=== PATIENT | female | born 1955 | race Caucasian/White ===

== ENCOUNTER → 2017-02-23 | Outpatient (CLI) | payer BC ==
--- NOTE | 2017-02-23 10:44 | MM ---
Reason for exam: additional evaluation requested from abnormal screening. Last mammogram was performed less than 1 month ago. History: Patient is postmenopausal. Family history of breast cancer in cousin at age 50. Took estrogen for 5 years beginning at age 46. Took progesterone for 5 years beginning at age 46. Physical Findings: Nurse did not find any significant physical abnormalities on exam. MG Work Up Mamm w CAD LT ML, spot compression CC, and spot compression MLO view(s) were taken of the left breast. Prior study comparison: February 18, 2017, bilateral MG screening mammo w CAD. January 01, 2016, bilateral MG screening mammo w CAD. September 26, 2014, bilateral MG screening mammo w CAD. March 25, 2013, bilateral digital screening mammo w/CAD. March 16, 2012, bilateral digital screening mammo w/CAD. The breast tissue is heterogeneously dense. This may lower the sensitivity of mammography. The focal asymmetry disperses compatible with summation shadow. No persisting abnormality seen. ASSESSMENT: Negative, BI-RAD 1 RECOMMENDATION: Return to routine screening mammogram schedule for both breasts.
== END | disposition home or self-care (01) ==
LOC: RADMAMWWP 09:33
PROVIDERS: ATTEND Obstetrics & Gynecology
DX: R92.8 Other abnormal and inconclusive findings on diagnostic imaging of breast (principal)

== ENCOUNTER → 2018-03-30 | Outpatient (CLI) | payer BC ==
--- NOTE | 2018-03-30 11:19 | BD ---
EXAMINATION TYPE: Axial Bone Density DATE OF EXAM: 03/30/2018 COMPARISON: NONE CLINICAL HISTORY: Postmenopausal female Height: 65.5 IN Weight: 151 LBS RISK FACTORS HISTORY OF: Active: YES Postmenopausal woman: AGE 47 Take estrogen and/or progesterone medications: NOT NOW How long: CONTROL AGE 18-30 MEDICATIONS: Thyroid Medications: YES Which medication: Levothyroxine How Lon YEARS Additional Medications: CALCIUM, VIT D, HAIR SKIN AND NAILS, SIMVASTATIN, LEVOTHYROXINE, EXAM MEASUREMENTS: Bone mineral densitometry was performed using the [employer] System. Bone mineral density as measured about the Lumbar spine is: ----- L1-L4(G/cm2): 1.068 T Score Values are as follows: ----- L2: -2.3 ----- L3: -1.7 ----- L4: -1.2 ----- L1-L4: -0.9 Bone mineral density BASELINE Bone mineral density about the R hip (g/cm2): 0.789 Bone mineral density about the L hip (g/cm2): 0.800 T Score values are as follows: -----R Neck: -1.8 -----L Neck: -1.7 -----R Total: -1.8 -----L Total: -1.6 Bone mineral density BASELINE IMPRESSION: Osteopenia (T Score between -2.5 and -1). There is slightly increased risk of fracture and the patient may be considered for treatment. Re-Screen 2-5 years. NOTE: T-SCORE=SD OF THE YOUNG ADULT MEAN.
--- NOTE | 2018-04-01 08:22 | MM ---
Reason for exam: screening (asymptomatic). Last mammogram was performed 1 year and 1 month ago. History: Patient is postmenopausal. Family history of breast cancer in cousin at age 50. Took estrogen for 5 years beginning at age 46. Took progesterone for 5 years beginning at age 46. Physical Findings: A clinical breast exam by your physician is recommended on an annual basis and results should be correlated with mammographic findings. MG 3D Screening Mammo W/Cad Bilateral CC and MLO view(s) were taken. Prior study comparison: February 23, 2017, left breast MG work up mamm w CAD LT. February 18, 2017, bilateral MG screening mammo w CAD. The breast tissue is heterogeneously dense. This may lower the sensitivity of mammography. There is no discrete abnormality. ASSESSMENT: Negative, BI-RAD 1 RECOMMENDATION: Routine screening mammogram of both breasts in 1 year.
== END | disposition home or self-care (01) ==
LOC: RADMAMWWP 10:08
PROVIDERS: ATTEND Obstetrics & Gynecology
DX: Z12.31 Encounter for screening mammogram for malignant neoplasm of breast (principal); M85.80 Other specified disorders of bone density and structure, unspecified site; Z78.0 Asymptomatic menopausal state
CPT/HCPCS: 77063; 77067; 77080

== ENCOUNTER → 2018-10-19 | Outpatient (CLI) | payer MEDICARE ==
--- NOTE | 2018-10-19 14:58 | XR ---
Left hip HISTORY: Hip pain 2 views of the left hip Bone mineralization, joint spaces and alignment are maintained. There is no fracture or dislocation. IMPRESSION: Normal left hip. Hip MRI may be of benefit.
== END | disposition home or self-care (01) ==
LOC: RADXRMAIN 13:33
PROVIDERS: ATTEND Nurse Practitioner Family
DX: M25.552 Pain in left hip (principal)
CPT/HCPCS: 73502

== ENCOUNTER → 2020-04-02 | Outpatient (CLI) | payer MEDICARE ==
--- NOTE | 2020-04-02 09:59 | BD ---
EXAMINATION TYPE: Axial Bone Density DATE OF EXAM: 04/02/2020 COMPARISON: 2017 CLINICAL HISTORY: disorder of bone Height: 5'6 Weight: 153 FRAX RISK QUESTIONS: Secondary Osteoporosis: 3. Menopause before 45: y RISK FACTORS HISTORY OF: Postmenopausal woman: y MEDICATIONS: Thyroid Medications: Which medication: generic synthroid How Lon yrs Additional Medications: statin Additional History: EXAM MEASUREMENTS: Bone mineral densitometry was performed using the [employer] System. Bone mineral density as measured about the Lumbar spine is: ----- L1-L4(G/cm2): 1.038 T Score Values are as follows: ----- L2: -2.2 ----- L3: -1.9 ----- L4: 0.7 ----- L1-L4: -1.2 Bone mineral density has: Decreased -2.7% since study of: 03/30/2018 Bone mineral density about the R hip (g/cm2): 0.722 Bone mineral density about the L hip (g/cm2): 0.814 T Score values are as follows: -----R Neck: -1.9 -----L Neck: -1.6 -----R Total: -0.5 -----L Total: -0.2 Bone mineral density has: Increased 0.9% since study of: 03/30/2018 IMPRESSION: Osteopenia (T Score between -2.5 and -1). There is slightly increased risk of fracture and the patient may be considered for treatment. Re-Screen 2-5 years. NOTE: T-SCORE=SD OF THE YOUNG ADULT MEAN.
--- NOTE | 2020-04-03 13:30 | MM ---
Reason for exam: screening (asymptomatic). Last mammogram was performed 2 years ago. History: Patient is postmenopausal. Family history of breast cancer in cousin at age 50. Took estrogen for 5 years beginning at age 46. Took progesterone for 5 years beginning at age 46. Physical Findings: A clinical breast exam by your physician is recommended on an annual basis and results should be correlated with mammographic findings. MG 3D Screening Mammo W/Cad Bilateral CC and MLO view(s) were taken. Prior study comparison: March 30, 2018, bilateral MG 3d screening mammo w/cad. February 23, 2017, left breast MG work up mamm w CAD LT. The breast tissue is heterogeneously dense. This may lower the sensitivity of mammography. No significant changes when compared with prior studies. ASSESSMENT: Negative, BI-RAD 1 RECOMMENDATION: Routine screening mammogram of both breasts in 1 year.
== END | disposition home or self-care (01) ==
LOC: RADMAMWWP 08:55
PROVIDERS: ATTEND Obstetrics & Gynecology
DX: Z12.31 Encounter for screening mammogram for malignant neoplasm of breast (principal); M85.80 Other specified disorders of bone density and structure, unspecified site
CPT/HCPCS: 77063; 77067; 77080

== ENCOUNTER → 2022-04-03 | Outpatient (CLI) | payer MEDICARE ==
--- NOTE | 2022-04-03 15:18 | BD ---
EXAMINATION TYPE: Axial Bone Density DATE OF EXAM: 04/03/2022 COMPARISON: 04.02.2020 CLINICAL HISTORY: 66 years year old Female. ICD-10 CODE: [id number] OSTEOPENIA Height: 65 Weight: 152 FRAX RISK QUESTIONS: Glucocorticoids (More than 3mos): YES (Ex: prednisone, prednisolone, methylprednisolone, dexamethasone, and hydrocortisone). RISK FACTORS HISTORY OF: Active: YES Postmenopausal woman: YES, 45 YRS OLD Take estrogen and/or progesterone medications: YES, SHORT TIME Hyperparathyroidism: NO Adrenal Insufficiency: NO MEDICATIONS: Prednisone or other steroids: YES, IN HER EYES Thyroid Medications:YES, SYNTHROID, 10+ YRS Additional Medications: STATIN FOR CHOLESTEROL, VIT D, CALCIUM Additional History: CHOLESTEROL, THYROID, CATARACTS, EXAM MEASUREMENTS: Bone mineral densitometry was performed using the [employer] System. Bone mineral density as measured about the Lumbar spine is: ----- L1-L4(G/cm2): 1.051 T Score Values are as follows: ----- L1: -2.0 ----- L2: -1.9 ----- L3: -1.3 ----- L4: 0.4 ----- L1-L4: -1.1 Bone mineral density has: Increased 1.3% since study of: 04.02.2020 Bone mineral density about the R hip (g/cm2): 0.768 Bone mineral density about the L hip (g/cm2): 0.824 T Score values are as follows: -----R Neck: -1.8 -----L Neck: -1.7 -----R Total: -1.9 -----L Total: -1.5 Bone mineral density has: Decreased -1.1% since study of: 04.02.2020 FRAX%s: The graph provided illustrates a 7.8% chance for a major osteoporotic fx and a 2.1% chance fo r the hips probability for fx in 10 years time. IMPRESSION: Osteopenia (T Score between -2.5 and -1). There is slightly increased risk of fracture and the patient may be considered for treatment. Re-Screen 2-5 years. NOTE: T-SCORE=SD OF THE YOUNG ADULT MEAN.
--- NOTE | 2022-04-04 09:56 | MM ---
Reason for Exam: Screening (asymptomatic). Last mammogram was performed 2 year(s) and 0 month(s) ago. Patient History: Menarche at age 8. First Full-Term at age 23. Postmenopausal. Estrogen for 5 years from age 46 until age 51. Progesterone for 5 years from age 46 until age 51. Maternal cousin had breast cancer, age 50. Risk Values: Farhana 5 year model risk: 2.1%. NCI Lifetime model risk: 6.7%. Prior Study Comparison: 02/23/2017 Left Diagnostic Mammogram, [facility]. 03/30/2018 Bilateral Screening Mammogram, [facility]. 04/02/2020 Bilateral Screening Mammogram, [facility]. Tissue Density: There are scattered fibroglandular densities. Findings: Analyzed By CAD. There is no suspicious group of microcalcifications or new suspicious mass in either breast. Overall Assessment: Negative, BI-RAD 1 Management: Screening Mammogram of both breasts in 1 year. A clinical breast exam by your physician is recommended on an annual basis and results should be correlated with mammographic findings. [facility] will attempt to contact patient to return for supplemental views and ultrasound if indicated. Electronically signed and approved by: Ruddy Fu DO
== END | disposition home or self-care (01) ==
LOC: RADMAMWWP 10:10
PROVIDERS: ATTEND Obstetrics & Gynecology
DX: Z12.31 Encounter for screening mammogram for malignant neoplasm of breast (principal); M85.89 Other specified disorders of bone density and structure, multiple sites; Z78.0 Asymptomatic menopausal state; Z80.3 Family history of malignant neoplasm of breast
CPT/HCPCS: 77063; 77067; 77080

== ENCOUNTER → 2023-03-28 | Outpatient (CLI) | payer MEDICARE ==
--- NOTE | 2023-03-28 12:18 | XR ---
EXAMINATION TYPE: XR Hip Complete LT DATE OF EXAM: 03/28/2023 11:57 AM CLINICAL INDICATION:Female, 67 years old with history of M25.552 LT HIP PAIN; [facility] COMPARISON: 10/19/2018. TECHNIQUE: XR Hip Complete LT; hip was examined in the frontal and lateral projections and a AP pelvi s. FINDINGS: No evidence for acute process, joint dislocation or significant soft tissue swelling. Osteo phyte formation of the superior acetabulum of the hip. IMPRESSION: 1. No evidence for acute process. 2. Mild hip osteoarthrosis. Mildly increased compared to 2018
== END | disposition home or self-care (01) ==
LOC: RADXRMAIN 11:33
PROVIDERS: ATTEND Family Medicine
DX: M25.552 Pain in left hip (principal); M19.90 Unspecified osteoarthritis, unspecified site; Z04.9 Encounter for examination and observation for unspecified reason
CPT/HCPCS: 73502

== ENCOUNTER → 2023-04-06 | Outpatient (CLI) | payer MEDICARE ==
--- NOTE | 2023-04-06 10:33 | MM ---
Reason for Exam: Screening (asymptomatic). Last screening mammogram was performed 12 month(s) ago. Patient History: Menarche at age 8. First Full-Term at age 23. Postmenopausal. Hormonal Contraceptives for 12 years from age 17 until age 29. Maternal cousin had breast cancer, age 50. Risk Values: Farhana 5 year model risk: 2.1%. NCI Lifetime model risk: 6.4%. Prior Study Comparison: 03/30/2018 Bilateral Screening Mammogram, [facility]. 04/02/2020 Bilateral Screening Mammogram, [facility]. 04/03/2022 Bilateral MG 3D screening mammo w/cad, [facility]. Tissue Density: There are scattered fibroglandular densities. Findings: Analyzed By CAD. There is no suspicious group of microcalcifications or new suspicious mass. Overall Assessment: Negative, BI-RAD 1 Management: Screening Mammogram of both breasts in [address] [facility] will attempt to contact patient to return for supplemental views and ultrasound if indicated. Patient should continue monthly self-breast exams. A clinical breast exam by your physician is recommended on an annual basis. This exam should not preclude additional follow-up of suspicious palpable abnormalities. Note on Farhana scores and lifetime risk: 1. A Farhana score greater than 3% is considered moderate risk. If this is the case, consider specialist referral to assess eligibility for a risk reducing agent. 2. If overall lifetime risk for the development of breast cancer is 20% or higher, the patient may qualify for future screening with alternating mammogram and breast MRI. Electronically signed and approved by: Ruddy Fu DO
== END | disposition home or self-care (01) ==
LOC: RADMAMWWP 09:10
PROVIDERS: ATTEND Obstetrics & Gynecology
DX: Z12.31 Encounter for screening mammogram for malignant neoplasm of breast (principal); Z78.0 Asymptomatic menopausal state; Z80.3 Family history of malignant neoplasm of breast
CPT/HCPCS: 77063; 77067

== ENCOUNTER → 2023-04-24 | Outpatient (CLI) | payer MEDICARE ==
--- NOTE | 2023-04-29 09:03 | MR ---
EXAM: MR hip LT wo con DATE OF EXAM: 04/24/2023 COMPARISON: Left hip radiographs 04/20/2023 HISTORY: Left hip pain x 3 years. TECHNIQUE: Multiplanar, multisequence images of the left hip were acquired without contrast. FINDINGS: BONES/MARROW: Normal bone marrow signal. Mild thinning of the superior femoral head and superior acet abular articular cartilage. No joint effusion. LABRUM: Grossly intact, given the limitations of a non arthrographic exam. SOFT TISSUES: Full-thickness tear involving the gluteus minimus tendon are retracted proximally appro ximately 1.8 cm. There is partial thickness tearing and tendinosis of the gluteus medius tendon. Incr eased fluid within the trochanteric bursa. Small amount of fluid at the right common hamstrings bone tendon interface, relating to partial thickness/intrasubstance tearing, no full-thickness or retracte d tear.. NEUROVASCULAR: Visualized neurovascular structures are normal. OTHER: Visualized intrapelvic structures are normal.. No mass. No lymphadenopathy. IMPRESSION: 1. Full-thickness tear gluteus minimus tendon. 2. Partial-thickness tear and tendinosis gluteus medius tendon. 3. Trochanteric bursitis. 4. Mild left hip chondromalacia. 5. Right common hamstring tendon origin partial thickness/intrasubstance tear.
== END | disposition home or self-care (01) ==
LOC: RADMRIMAIN 12:49
PROVIDERS: ATTEND Orthopaedic Surgery
DX: S76.012A Strain of muscle, fascia and tendon of left hip, initial encounter (principal); M94.252 Chondromalacia, left hip; M67.854 Other specified disorders of tendon, left hip; M70.62 Trochanteric bursitis, left hip

== ENCOUNTER → 2023-11-20 | Outpatient (CLI) | payer MEDICARE ==
--- NOTE | 2023-11-20 15:23 | FL ---
EXAMINATION TYPE: FL barium swallow DATE OF EXAM: 11/20/2023 CLINICAL INDICATION: 68-year-old female R13.10, difficulty swallowing solids, choking with solids. COMPARISON: None Total Fluoroscopy Time: 1 minute 54 seconds Total images: 94. DAP- 269.25 mGycm2 FINDINGS: No penetration or aspiration is seen during the patient's initial swallows. There is moderate disc/en dplate degenerative change mid and lower cervical spine. Anterior endplate spurs impress onto the patria k wall of the cervical esophagus but without any obstruction. This thoracic portion has a normal course and caliber. No fixed narrowing. Mild scattered tertiary pe ristaltic waves are noted compatible with age-related dysmotility. No abnormal filling defect or mucosal abnormality. There is a tiny hiatal hernia but no gastroesophageal reflux seen during the course of the exam IMPRESSION: 1. Moderate anterior endplate spondylosis mid to lower cervical spine impresses onto the back wall of the cervical esophagus but does not contribute to any obstruction. No penetration or aspiration seen during the initial swallows. If the patient's choking episodes persist, consider these pathology tammy luation. 2. No stricture or mucosal abnormality seen. 3. Tiny hiatal hernia but no gastroesophageal reflux seen.
== END | disposition home or self-care (01) ==
LOC: RADUSWWP 08:04
PROVIDERS: ATTEND Family Medicine
DX: R13.10 Dysphagia, unspecified (principal); M47.812 Spondylosis without myelopathy or radiculopathy, cervical region; K44.9 Diaphragmatic hernia without obstruction or gangrene
CPT/HCPCS: 74220

== ENCOUNTER 2024-02-05 14:52 | Day surgery (SDC) | payer MEDICARE ==
[2024-02-05 15:17] VITALS: TEMP 97.3
[2024-02-05] MEDS: LACTATED RINGERS 1,000 ML IV SCH (15:23)
[2024-02-05] MEDS ORDERED: PROPOFOL 10 MG/ML 20 ML VIAL IV ONE (16:26)
[2024-02-05] MEDS: LACTATED RINGERS 1,000 ML IV ONE ×3 (16:30→16:45)
[2024-02-05 17:15] VITALS: BP 106/70; PULSE 60; RESP 16
--- NOTE | 2024-02-05 17:24 | P.PCN ---
Date of Procedure: 02/05/24 Procedure(s) Performed: BRIEF HISTORY: Patient is a 68-year-old pleasant white female scheduled for an elective colonoscopy as a part of screening for colon cancer. PROCEDURE PERFORMED: Colonoscopy. PREOPERATIVE DIAGNOSIS: Screening for colon cancer. IV sedation per Anesthesia. PROCEDURE: After informed consent was obtained, the patient, was brought into the endoscopy unit. IV sedation was administered by Anesthesia under continuous monitoring. Digital rectal examination was normal. Initially the Olympus CF-160 flexible video colonoscope was then inserted in the rectum, gradually advanced into the cecum without any difficulty. Careful examination was performed as the scope was gradually being withdrawn. Ileocecal valve and the appendiceal orifice were visualized and appeared normal. Prep was excellent. Mucosa of the cecum, ascending colon, transverse colon, descending colon, sigmoid colon, and rectum appeared normal. Scattered sigmoid diverticulosis retroflexion was performed in the rectum and no lesions were seen. The patient tolerated the procedure well. IMPRESSION: Normal-appearing colon from rectum to cecum with no evidence of colorectal neoplasia Katter sigmoid diverticulosis. RECOMMENDATIONS: Findings of this examination were discussed with the patient as well as her family. She was advised to have repeat screening colonoscopy in 10 years..
== END 2024-02-05 17:40 | disposition home or self-care (01) ==
LOC: ORWHC2ENDO 14:52
PROVIDERS: ATTEND Internal Medicine Gastroenterology
DX: Z12.11 Encounter for screening for malignant neoplasm of colon
CPT/HCPCS: 45378

== ENCOUNTER → 2024-04-07 | Outpatient (CLI) | payer MEDICARE ==
[2024-02-02 13:14] VITALS: BMI 25.0
--- NOTE | 2024-04-08 08:22 | MM ---
Reason for Exam: Screening (asymptomatic). Last screening mammogram was performed 12 month(s) ago. Patient History: Menarche at age 8. First Full-Term at age 23. Postmenopausal. Patient has history of breast feeding. Hormonal Contraceptives for 12 years from age 17 until age 29. Risk Values: Farhana 5 year model risk: 2.1%. NCI Lifetime model risk: 6.1%. Prior Study Comparison: 02/18/2017 Bilateral Screening Mammogram, [facility]. 02/23/2017 Left Diagnostic Mammogram, [facility]. 03/30/2018 Bilateral Screening Mammogram, [facility]. 04/02/2020 Bilateral Screening Mammogram, [facility]. 04/03/2022 Bilateral MG 3D screening mammo w/cad, [facility]. 04/06/2023 Bilateral MG 3D screening mammo w/cad, [facility]. Tissue Density: The breasts are heterogeneously dense, which may obscure small masses. Findings: Analyzed By CAD. Nodular density upper outer left breast 4.3 cm from the nipple. Additional views are recommended. No evidence for nodularity of the right breast there is asymmetric distortion however outer right cc view and additional views are also recommended. No suspicious microcalcifications. Overall Assessment: Incomplete: need additional imaging evaluation, BI-RAD 0 Management: Diagnostic Mammogram of both breasts. . Patient should continue monthly self-breast exams. A clinical breast exam by your physician is recommended on an annual basis. This exam should not preclude additional follow-up of suspicious palpable abnormalities. Note on Farhana scores and lifetime risk: 1. A Farhana score greater than 3% is considered moderate risk. If this is the case, consider specialist referral to assess eligibility for a risk reducing agent. 2. If overall lifetime risk for the development of breast cancer is 20% or higher, the patient may qualify for future screening with alternating mammogram and breast MRI. [facility], , 04/08/2024 8:15 AM. Electronically signed and approved by: Alejandro Ellison M.D. Radiologis
== END | disposition home or self-care (01) ==
LOC: RADMAMWWP 08:16
PROVIDERS: ATTEND Family Medicine
DX: Z12.31 Encounter for screening mammogram for malignant neoplasm of breast (principal); R92.333 Mammographic heterogeneous density, bilateral breasts; Z78.0 Asymptomatic menopausal state
CPT/HCPCS: 77063; 77067

== ENCOUNTER → 2024-04-19 | Outpatient (CLI) | payer MEDICARE ==
--- NOTE | 2024-04-19 08:58 | MM ---
Reason for Exam: Additional evaluation requested from abnormal screening. Last screening mammogram was performed less than 1 month ago. Patient History: Menarche at age 8. First Full-Term at age 23. Postmenopausal. Patient has history of breast feeding. Hormonal Contraceptives for 12 years from age 17 until age 29. Risk Values: Farhana 5 year model risk: 2.1%. NCI Lifetime model risk: 6.1%. Prior Study Comparison: 04/06/2023 Bilateral MG 3D screening mammo w/cad, [facility]. 04/07/2024 Bilateral MG 3D screening mammo w/cad, [facility]. Tissue Density: The breasts are heterogeneously dense, which may obscure small masses. Findings: Analyzed By CAD. The questioned area of asymmetric density outer posterior right breast does not clearly persist on additional views. On the left, the asymmetric density superiorly in the middle depth appears to persist on spot 3-D MLO but not on the 3-D lateral or spot 3-D CC views. Superimposition shadow is suspected. Ultrasound recommended. Overall Assessment: Incomplete: need additional imaging evaluation, BI-RAD 0 Management: Diagnostic Breast Ultrasound of the left breast. [facility], , 04/19/2024 8:56 AM. Electronically signed and approved by: Marvin Kidd M.D. Radiologist
--- NOTE | 2024-04-19 09:16 | USB ---
Reason for Exam: Additional evaluation requested from abnormal screening. Patient History: Menarche at age 8. First Full-Term at age 23. Postmenopausal. Patient has history of breast feeding. Hormonal Contraceptives for 12 years from age 17 until age 29. Risk Values: Farhana 5 year model risk: 2.1%. NCI Lifetime model risk: 6.1%. Technique: Method: Targeted. Doppler: Color. Patient Position: Supine. Prior Study Comparison: 04/03/2022 Bilateral MG 3D screening mammo w/cad, [facility]. 04/06/2023 Bilateral MG 3D screening mammo w/cad, [facility]. 04/07/2024 Bilateral MG 3D screening mammo w/cad, [facility]. Findings: The upper section of the breast of the left breast, the axilla of the left breast and the retroareolar of the left breast were scanned. Ultrasound superior half left breast 9:00 to 3:00 including scanning of the subareolar region and axilla. At the 12:00 position, 4 cm from the nipple, there is a circumscribed oval mass measuring 6 mm. There is central echogenic area with peripheral hypoechoic area. Possible small intramammary lymph node. As this may correspond to the mammographic finding, biopsy with clip placement is recommended. No other solid or cystic lesion or axillary lymphadenopathy. Overall Assessment: Suspicious, BI-RAD 4 Management: Ultrasound Core Biopsy of the left breast. Results were given to the patient verbally at the time of exam. [facility], , 04/19/2024 9:12 AM. Electronically signed and approved by: Marvin Kidd M.D. Radiologist
== END | disposition home or self-care (01) ==
LOC: RADMAMWWP 08:01
PROVIDERS: ATTEND Family Medicine
DX: R92.8 Other abnormal and inconclusive findings on diagnostic imaging of breast (principal); Z78.0 Asymptomatic menopausal state
CPT/HCPCS: 77066; 76642; G0279; 77062

== ENCOUNTER → 2024-05-05 | Day surgery (SDC) | payer MEDICARE ==
--- NOTE | 2024-05-13 09:29 | MM ---
Reason for Exam: Post Procedure Mammogram. Last screening mammogram was performed less than 1 month ago. Patient History: Menarche at age 8. First Full-Term at age 23. Postmenopausal. Patient has history of breast feeding. Hormonal Contraceptives for 12 years from age 17 until age 29. Risk Values: Farhana 5 year model risk: 2.1%. NCI Lifetime model risk: 6.1%. Prior Study Comparison: 02/23/2017 Left Diagnostic Mammogram, [facility]. 03/30/2018 Bilateral Screening Mammogram, [facility]. 04/02/2020 Bilateral Screening Mammogram, [facility]. 04/03/2022 Bilateral MG 3D screening mammo w/cad, [facility]. 04/06/2023 Bilateral MG 3D screening mammo w/cad, [facility]. 04/07/2024 Bilateral MG 3D screening mammo w/cad, [facility]. 04/19/2024 Left US breast workup limited LT, [facility]. 04/19/2024 Bilateral MG 3D work up w/cad [place], [facility]. Tissue Density: Left: The breasts are heterogeneously dense, which may obscure small masses. Pathology Description: Location: 12 o'clock. Marker Left Behind. Needle Type: [place] Cores: 2 Gauge: 12 The procedure of ultrasound guided core biopsy was explained to the patient. Benefits, alternatives, and risks were discussed. An informed consent was then obtained. The patient was placed in supine positioning for imaging and for the procedure. The overlying skin was prepped and draped in usual sterile fashion. Lidocaine buffered with bicarbonate was used as anesthetic into the skin and subcutaneous tissue up to area of concern in the left 12:00 breast 4 cm from the nipple . A sean was made with surgical scalpel. Under ultrasound guidance, a 12-gauge vacuum assisted biopsy gun device was used to obtain 2 core samples. Following this, a biopsy clip was left in lesion. The patient tolerated the procedure well without any immediate complication. The patient was kept in the radiology department for short stay after the procedure and then discharged home in stable condition. Postprocedure mammogram: The patient was transferred to mammography for physician ordered post procedure mammogram for clip placement verification. Post procedure mammogram demonstrates the clip in appropriate placement. Impression: Successful, uncomplicated ultrasound guided core biopsy of area of concern in the left 12:00 breast 4 cm from the nipple breast, full pathology results to follow. [facility], , 05/05/2024 2:52 PM. Pathology Results: Result: Malignant, Invasive ductal carcinoma. Pathology and radiology were reviewed. Findings are concordant. LEFT BREAST, 12:00, ULTRASOUND GUIDED CORE BIOPSY: Invasive Grade 1 ductal carcinoma with microcalcification (see Surgical Pathology Cancer Case Summary and comment). Focal DCIS present. Overall Assessment: Malignant Assessment: MG diagnostic mammo LT wo CAD. - Left: Known biopsy proven malignancy, BI-RAD 6. Management: Surgical Consultation of the left breast. Electronically signed and approved by: Alejandro Ellison M.D. Radiologis
== END ==
LOC: RADUSWWP 12:40
PROVIDERS: ATTEND Family Medicine
DX: C50.812 Malignant neoplasm of overlapping sites of left female breast (principal); Z78.0 Asymptomatic menopausal state; Z17.0 Estrogen receptor positive status [ER+]
CPT/HCPCS: 88305; 88342; 88341; 77065; 19083; A4648

== ENCOUNTER → 2024-05-16 | Outpatient (CLI) | payer MEDICARE ==
[2024-05-16 11:15] VITALS: BP 121/77; PULSE 79; RESP 17; TEMP 98.7
--- NOTE | 2024-05-16 12:40 | P.GSCN ---
History of Present Illness Consult date: 05/16/24 Reason for Consult: left breast invasive ductal cancer Requesting physician: Mana Doherty History of present illness: Echo is a 68 year old female seen in consultation for Dale Doherty regarding a left breast biopsy-proven invasive ductal carcinoma. She had a bilateral screening mammogram performed on 04-07-2024. Following this it was recommended that she undergo diagnostic mammogram of both breast. Diagnostic mammogram of both breasts were performed on 04-19-2024 which led to further workup of the left breast. She did undergo further workup of the left breast on 04-19-2024 which revealed a 6 mm lesion in the left breast at the 12 o'clock position. She underwent ultrasound-guided core biopsy of this area on 05-05-2024 and this revealed an invasive grade 1 ductal carcinoma. This was ER/MD positive and HER2 negative. she did not feel anything in her breast. Never had surgery on her breast in the past. She is not complaining of any nipple discharge or skin changes. She has not had any recent trauma or infection in the breast. Caffeine: 2 12 0z muggs of coffee nicotine: none chocolate: weekly hormones: none BCP: used for 10 years Family History: maternal grandmother: ? colon maternal cousin: cancer ? type brother: tumor on shoulder spread brother: amylodiosis cardiac Hormonal History: menarche: 10 , breast fed: yes, age at first : 23 menopause: 43 Surgical History: bunyon right foot left leg fatty nodules tonsil wisdom teeth Medical History: hypothyroid high cholesterol Social History: nicotine: none alcohol: occasional drugs: none Review of Systems - Constitutional Denies fever, Denies weight loss - EENT EENT Comment(s): cataract surgery bilateral Ears: bilateral: tinnitus, deny: decreased hearing Ears, nose, mouth and throat: Denies dysphagia - Breasts bilateral: as per HPI - Cardiovascular Denies chest pain, Denies shortness of breath - Respiratory Denies cough, Denies 7 - Gastrointestinal Reports as per HPI - Genitourinary Genitourinary: Denies dysuria, Denies hematuria Menstruation: Reports postmenopausal - Musculoskeletal Musculoskeleta Comment(s): back pain arthritis, bone spurs in neck - Integumentary Denies rash, Denies unusual bruising - Neurological Denies headaches, Denies syncope - Psychiatric Reports as per HPI - Endocrine Reports as per HPI, Reports fatigue - Hematologic/Lymphatic Denies easy bleeding, Denies easy bruising - Allergic/Immunologic Reports as per HPI, Reports seasonal allergies Past Medical History Past Medical History: Hyperlipidemia, Thyroid Disorder Additional Past Medical History / Comment(s): Arthritis, History of Any Multi-Drug Resistant Organisms: None Reported Past Surgical History: Tonsillectomy Additional Past Surgical History / Comment(s): Colonoscopy, R foot surgery with hardware, cataracts Additional Past Anesthesia/Blood Transfusion Reaction / Comm: States with last colonoscopy her heart rate decreased and states they gave her medicine to increase her heart rate. Past Psychological History: No Psychological Hx Reported Smoking Status: Never smoker Past Alcohol Use History: Occasional Past Drug Use History: None Reported - Past Family History Mother Family Medical History: No Reported History Father Family Medical History: Myocardial Infarction ([place]) Medications and Allergies Home Medications Medication Instructions Recorded Confirmed Type Levothyroxine Sodium [Synthroid] 75 mcg PO DAILY 10/07/13 05/16/24 History Simvastatin [Zocor] 20 mg PO HS 10/07/13 05/16/24 History Calcium Carbonate [Calcium] 600 mg PO DAILY 02/02/24 05/16/24 History Cholecalciferol [Vitamin D3 (10 10 mcg PO DAILY 02/02/24 05/16/24 History Mcg = 400 Iu)] Ibuprofen [Motrin] 400 mg PO Q8HR PRN 02/02/24 05/16/24 History Multivitamins, Thera [Multivitamin 1 tab PO DAILY 02/02/24 05/16/24 History (formulary)] Allergies Allergy/AdvReac Type Severity Reaction Status Date / Time No Known Allergies Allergy Verified 05/16/24 11:12 Surgical - Exam Vital Signs Temp Pulse Resp BP Pulse Ox 98.7 F 79 17 121/77 97 05/16/24 11:12 05/16/24 11:12 05/16/24 11:12 05/16/24 11:12 05/16/24 11:12 - General no distress - Eyes normal ocular movement - ENT no hearing loss - Neck trachea midline - Respiratory normal respiratory effort, clear to auscultation - Cardiovascular Rhythm: regular Heart Sounds: normal: S1, S2 - Abdomen Abdomen: soft, non tender, no guarding, no rigid, no rebound - Integumentary normal turgor - Neurologic no disoriented, no combative - Musculoskeletal normal gait - Psychiatric oriented to time, oriented to person, oriented to place, speech is normal, memory intact Breast Exam: BRA: 36B Inspection: Right breast grade ptosis, left breast grade 1/2 ptosis Palpation: Right breast: Multi positional exam fibrocystic changes, no dominant masses or nodules of concern Right axilla: No adenopathy of concern Left breast: Multi positional exam no dominant masses or nodules of concern, biopsy site clean and dry no evidence of infection, grade 2 ptosis Left axilla: No adenopathy of concern Results Left breast invasive ductal carcinoma stage I, radioigraphs personally reviewed and interpreted Assessment and Plan Assessment: Impression: Left breast stage I invasive ductal carcinoma Plan: present case at tumor board Left breast needle localization lumpectomy, mastopexy incision, oncoplastic tissue transfer, left sentinel node injection, left sentinel node biopsy, possible left axillary node dissection CC: Mana Doherty
== END ==
LOC: WWCWWP 10:47
PROVIDERS: ATTEND Surgery
DX: C50.912 Malignant neoplasm of unspecified site of left female breast (principal); Z17.0 Estrogen receptor positive status [ER+]; Z17.21 Progesterone receptor positive status

== ENCOUNTER → 2024-06-10 | Outpatient (CLI) | payer MEDICARE ==
--- NOTE | 2024-06-10 08:35 | USB ---
Reason for Exam: Additional evaluation requested from prior study. Patient History: Menarche at age 8. First Full-Term at age 23. Postmenopausal. Patient has history of breast feeding. Breast cancer, left, age 68. Hormonal Contraceptives for 12 years from age 17 until age 29. 05/05/2024, Malignant US biopsy breast VAD LT on the left side. Technique: Method: Whole Breast Handheld. Prior Study Comparison: 04/07/2024 Bilateral MG 3D screening mammo w/cad, [facility]. 04/19/2024 Bilateral MG 3D work up w/cad [facility], [facility]. 05/05/2024 Left MG diagnostic mammo LT wo CAD., [facility]. Findings: The whole breast of the right breast, the axilla of the right breast and the retroareolar of the right breast were scanned. A complete US of all four quadrants of the breast, axilla, and retro-areolar region were reviewed. There is no solid or cystic mass. No definite ectasia or axillary adenopathy. Overall Assessment: Known biopsy proven malignancy, BI-RAD 6 Management: Surgical Consultation of the left breast. No abnormality identified in the right breast. Continue with planned surgical/oncologic management in the left breast. Results were given to the patient verbally at the time of exam. [facility], , 06/10/2024 8:32 AM. Electronically signed and approved by: Marvin Kidd M.D. Radiologist
== END | disposition home or self-care (01) ==
LOC: RADMAMWWP 07:51
PROVIDERS: ATTEND Surgery
DX: R92.8 Other abnormal and inconclusive findings on diagnostic imaging of breast (principal); Z85.3 Personal history of malignant neoplasm of breast; Z78.0 Asymptomatic menopausal state

== ENCOUNTER → 2024-06-16 | Outpatient (CLI) | payer MEDICARE ==
[2024-06-16 15:50] VITALS: BP 144/85; PULSE 72; RESP 17; TEMP 97.6
--- NOTE | 2024-06-16 16:45 | P.PN ---
Subjective Progress Note Date: 06/16/24 Principal diagnosis: left breast invasive ductal cancer History of Present Illness Consult date: 06-16-24 Reason for Consult: left breast invasive ductal cancer Requesting physician: Mana Doherty History of present illness: Echo is a 68 year old female seen in consultation for Dale Doherty regarding a left breast biopsy-proven invasive ductal carcinoma. She had a bilateral screening mammogram performed on 04-07-2024. Following this it was recommended that she undergo diagnostic mammogram of both breast. Diagnostic mammogram of both breasts were performed on 04-19-2024 which led to further workup of the left breast. She did undergo further workup of the left breast on 04-19-2024 which revealed a 6 mm lesion in the left breast at the 12 o'clock position. She underwent ultrasound-guided core biopsy of this area on 05-05-2024 and this revealed an invasive grade 1 ductal carcinoma. This was ER/RI positive and HER2 negative. she did not feel anything in her breast. Never had surgery on her breast in the past. She is not complaining of any nipple discharge or skin changes. She has not had any recent trauma or infection in the breast. Patient's case presented at tumor board and 05-31-2024. She is going to have a left breast lumpectomy sentinel node biopsy, Oncotype, radiation therapy and endocrine therapy recommended. She is having additional radiographs of the right breast performed on 06-10-2024. These were done and no lesions of concern noted. Caffeine: 2 12 0z muggs of coffee nicotine: none chocolate: weekly hormones: none BCP: used for 10 years Family History: maternal grandmother: ? colon maternal cousin: cancer ? type brother: tumor on shoulder spread brother: amylodiosis cardiac Hormonal History: menarche: 10 , breast fed: yes, age at first : 23 menopause: 43 Surgical History: bunyon right foot left leg fatty nodules tonsil wisdom teeth Medical History: hypothyroid high cholesterol Social History: nicotine: none alcohol: occasional drugs: none Review of Systems - Constitutional Denies fever, Denies weight loss - EENT EENT Comment(s): cataract surgery bilateral Ears: bilateral: tinnitus, deny: decreased hearing Ears, nose, mouth and throat: Denies dysphagia - Breasts bilateral: as per HPI - Cardiovascular Denies chest pain, Denies shortness of breath - Respiratory Denies cough, - Gastrointestinal Reports as per HPI - Genitourinary Genitourinary: Denies dysuria, Denies hematuria Menstruation: Reports postmenopausal - Musculoskeletal Musculoskeleta Comment(s): back pain arthritis, bone spurs in neck - Integumentary Denies rash, Denies unusual bruising - Neurological Denies headaches, Denies syncope - Psychiatric Reports as per HPI - Endocrine Reports as per HPI, Reports fatigue - Hematologic/Lymphatic Denies easy bleeding, Denies easy bruising - Allergic/Immunologic Reports as per HPI, Reports seasonal allergies Past Medical History Past Medical History: Hyperlipidemia, Thyroid Disorder Additional Past Medical History / Comment(s): Arthritis, History of Any Multi-Drug Resistant Organisms: None Reported Past Surgical History: Tonsillectomy Additional Past Surgical History / Comment(s): Colonoscopy, R foot surgery with hardware, cataracts Additional Past Anesthesia/Blood Transfusion Reaction / Comm: States with last colonoscopy her heart rate decreased and states they gave her medicine to increase her heart rate. Past Psychological History: No Psychological Hx Reported Smoking Status: Never smoker Past Alcohol Use History: Occasional Past Drug Use History: None Reported - Past Family History Mother Family Medical History: No Reported History Father Family Medical History: Myocardial Infarction ([place]) Medications and Allergies Home Medications Medication Instructions Recorded Confirmed Type Levothyroxine Sodium [Synthroid] 75 mcg PO DAILY 10/07/13 05/16/24 History Simvastatin [Zocor] 20 mg PO HS 10/07/13 05/16/24 History Calcium Carbonate [Calcium] 600 mg PO DAILY 02/02/24 05/16/24 History Cholecalciferol [Vitamin D3 (10 10 mcg PO DAILY 02/02/24 05/16/24 History Mcg = 400 Iu)] Ibuprofen [Motrin] 400 mg PO Q8HR PRN 02/02/24 05/16/24 History Multivitamins, Thera [Multivitamin 1 tab PO DAILY 02/02/24 05/16/24 History (formulary)] Allergies Allergy/AdvReac Type Severity Reaction Status Date / Time No Known Allergies Allergy Verified 05/16/24 11:12 Surgical - Exam Vital Signs Temp Pulse Resp BP Pulse Ox 98.7 F 79 17 121/77 97 05/16/24 11:12 05/16/24 11:12 05/16/24 11:12 05/16/24 11:12 05/16/24 11:12 - General no distress - Eyes normal ocular movement - ENT no hearing loss - Neck trachea midline - Respiratory normal respiratory effort, clear to auscultation - Cardiovascular Rhythm: regular Heart Sounds: normal: S1, S2 - Abdomen Abdomen: soft, non tender, no guarding, no rigid, no rebound - Integumentary normal turgor - Neurologic no disoriented, no combative - Musculoskeletal normal gait - Psychiatric oriented to time, oriented to person, oriented to place, speech is normal, memory intact Breast Exam: BRA: 36B Inspection: Right breast grade ptosis, left breast grade 1/2 ptosis Palpation: Right breast: Multi positional exam fibrocystic changes, no dominant masses or nodules of concern Right axilla: No adenopathy of concern Left breast: Multi positional exam no dominant masses or nodules of concern, biopsy site clean and dry no evidence of infection, grade 2 ptosis Left axilla: No adenopathy of concern Results Left breast invasive ductal carcinoma stage I, radioigraphs personally reviewed and interpreted Assessment and Plan Assessment: Impression: Left breast stage I invasive ductal carcinoma Plan: present case at tumor board done Left breast needle localization lumpectomy, mastopexy incision, oncoplastic tissue transfer, left sentinel node injection, left sentinel node biopsy, possible left axillary node dissection Risk and benefits of the procedure was discussed with the patient. Risk include but are not limited to bleeding, infection, reaction to the anesthetic. If margins were to be positive in the left breast additional tissue resection may be necessary. Additionally there is a risk that the needle could slip in the area of concern would not be removed. They understand this and wish to proceed. With a sentinel node biopsy risks include but are not limited to bleeding, infection, reaction to the anesthetic. There is a risk of injury to the thoracodorsal or long thoracic nerves as well as decreased sensation to the inner arm or lymphedema. They understand and wish to proceed. CC: Mana Doherty Objective - Vital Signs Vital signs: Vital Signs Temp 97.6 F 06/16/24 15:47 Pulse 72 06/16/24 15:47 Resp 17 06/16/24 15:47 BP 144/85 06/16/24 15:47 Pulse Ox 98 06/16/24 15:47 FiO2 Intake & Output 06/15/24 06/16/24 06/16/24 18:59 06:59 18:59 Weight 72.575 kg
== END ==
LOC: WWCWWP 14:50
PROVIDERS: ATTEND Surgery
DX: C50.912 Malignant neoplasm of unspecified site of left female breast (principal)

== ENCOUNTER 2024-07-10 13:00 | Emergency (ER) | payer MEDICARE ==
--- NOTE | 2024-07-10 13:49 | ED ---
Dizziness HPI - General Chief Complaint: Dizziness Stated Complaint: weak Time Seen by Provider: 07/10/24 13:17 Source: patient, RN notes reviewed Mode of arrival: ambulatory Limitations: no limitations - History of Present Illness Initial Comments: This is a 69-year-old female with history of hyperlipidemia presenting with sudden onset dizziness at 1100 this morning. Patient states she was seated when she began experiencing a sudden sensation of room spinning/dizziness with associated general weakness, dyspnea, nausea and tingling in all extremities. Patient states most symptoms resolved spontaneously after 45 minutes with ongoing weakness and tingling persisting. Patient Dors is recent lumpectomy and starting new cancer medication, Teva-letrozole, which she had started 5 days ago. Patient denies ongoing dizziness or ever experiencing chest pain, headache, diplopia, AMS, ALOC. Denies history of CVA/TIA or AMI. MD Complaint: dizziness Onset/Timin -: hour(s) Time: 11:00 Timing: sudden onset Description: sense of movement, "room spinning" History of Same: No History of Trauma: No Associated Symptoms: shortness of breath, weakness, other (Nausea, paresthesia) - Related Data Home Medications Medication Instructions Recorded Confirmed Simvastatin [Zocor] 20 mg PO HS 10/07/13 07/10/24 Calcium Carbonate [Calcium] 600 mg PO BID 02/02/24 07/10/24 Cholecalciferol [Vitamin D3 (25 25 mcg PO DAILY 07/10/24 07/10/24 Mcg = 1000 Iu)] Letrozole [Femara] 2.5 mg PO DAILY 07/10/24 07/10/24 Levothyroxine Sodium [Synthroid] 75 mcg PO DAILY 07/10/24 07/10/24 Loratadine 10 mg PO DAILY PRN 07/10/24 07/10/24 Multivit-Min/FA/Lycopen/Lutein 1 tab PO DAILY 07/10/24 07/10/24 [Centrum Silver Tablet] valACYclovir HCL [Valtrex] 1,000 mg PO DAILY PRN 07/10/24 07/10/24 Allergies Allergy/AdvReac Type Severity Reaction Status Date / Time No Known Allergies Allergy Verified 07/10/24 15:18 Review of Systems ROS Statement: Those systems with pertinent positive or pertinent negative responses have been documented in the HPI. ROS Other: All systems not noted in ROS Statement are negative. Past Medical History Past Medical History: Hyperlipidemia, Thyroid Disorder Additional Past Medical History / Comment(s): Arthritis, History of Any Multi-Drug Resistant Organisms: None Reported Past Surgical History: Tonsillectomy Additional Past Surgical History / Comment(s): Colonoscopy, R foot surgery with hardware, cataracts, NODULES TAKEN OFF LEFT FROST AT AGE 17, lumpectomy Additional Past Anesthesia/Blood Transfusion Reaction / Comment(s): States with last colonoscopy her heart rate decreased and states they gave her medicine to increase her heart rate. Past Psychological History: No Psychological Hx Reported Smoking Status: Never smoker Past Alcohol Use History: Occasional Past Drug Use History: None Reported - Past Family History Mother Family Medical History: Dementia, Thyroid Disorder Father Family Medical History: Myocardial Infarction ([place]) General Exam Limitations: no limitations General appearance: alert, in no apparent distress Head exam: Present: atraumatic, normocephalic, normal inspection Eye exam: Present: normal appearance, PERRL, EOMI, other (HINTs exam normal). Absent: scleral icterus, conjunctival injection, periorbital swelling Pupils: Present: normal accommodation ENT exam: Present: normal exam, mucous membranes moist Neck exam: Present: normal inspection. Absent: tenderness, meningismus, lymphadenopathy Respiratory exam: Present: normal lung sounds bilaterally. Absent: respiratory distress, wheezes, rales, rhonchi, stridor Cardiovascular Exam: Present: regular rate, normal rhythm, normal heart sounds. Absent: systolic murmur, diastolic murmur, rubs, gallop, clicks GI/Abdominal exam: Present: soft, normal bowel sounds. Absent: distended, tenderness, guarding, rebound, rigid Extremities exam: Present: normal inspection, full ROM, normal capillary refill, other (Bilateral radial and posterior tibialis pulse +2. Neurovascular and motor function for all distal extremities normal.). Absent: tenderness, pedal edema, joint swelling, calf tenderness Back exam: Present: normal inspection Neurological exam: Present: alert, oriented X3, CN II-XII intact Psychiatric exam: Present: normal affect, normal mood Skin exam: Present: warm, dry, intact, normal color. Absent: rash Course Vital Signs 07/10/24 07/10/24 07/10/24 13:10 14:03 15:00 Temperature 98 F Pulse Rate 69 64 68 Respiratory 20 18 16 Rate Blood Pressure 129/83 112/79 136/76 O2 Sat by Pulse 98 98 Oximetry 07/10/24 16:00 Temperature Pulse Rate 71 Respiratory 16 Rate Blood Pressure 118/78 O2 Sat by Pulse 97 Oximetry Medical Decision Making - Medical Decision Making Was pt. sent in by a medical professional or institution (, PA, MACHINE CLOTH TRIMMER, urgent care, hospital, or custodial...) When possible be specific @ -[No] Did you speak to anyone other than the patient for history (EMS, parent, family, police, friend...)? What history was obtained from this source @ -[No] Did you review nursing and triage notes (agree or disagree)? Why? @ -[I reviewed and agree with nursing and triage notes] Were old charts reviewed (outside hosp., previous admission, EMS record, old EKG, old radiological studies, urgent care reports/EKG's, custodial records)? Report findings @ -[No old charts were reviewed] Differential Diagnosis (chest pain, altered mental status, abdominal pain women, abdominal pain men, vaginal bleeding, weakness, fever, dyspnea, syncope, headache, dizziness, GI bleed, back pain, seizure, CVA, palpatations, mental health, musculoskeletal)? @ -Differential Dizziness: Benign paroxysmal positional Vertigo, Meniere's disease, otitis media, acoustic neuroma, vertebrobasilar insufficiency, cerebellar stroke, encephalitis, hypovolemic, arrhythmia, coronary artery syndrome, anemia, this is not meant to be an all-inclusive list Differential Weakness: Hypoglycemia, shock, sepsis, hyponatremia, anemia, infection, [place], ETOH, adverse medicine reaction, overdose, stroke, this is not meant to be an all-inclusive list. EKG interpreted by me (3pts min.). @ -Sinus rhythm with shortened NATALYA. No ST deviation or T wave inversion. Ventricular rate 67 bpm, NATALYA 102 ms, QRS duration 75 ms, QTc 438 ms. X-rays interpreted by me (1pt min.). @ -[None done] CT interpreted by me (1pt min.). @ -[None done] U/S interpreted by me (1pt. min.). @ -[None done] What testing was considered but not performed or refused? (CT, X-rays, U/S, labs)? Why? @ -[None] What meds were considered but not given or refused? Why? @ -[None] Did you discuss the management of the patient with other professionals (professionals i.e. , PA, MACHINE CLOTH TRIMMER, lab, RT, psych nurse, social staff worker, appointment setter, teacher, traffic maintenance officer, high risk case manager)? Give summary @ -[No] Was smoking cessation discussed for >3mins.? @ -[No] Was critical care preformed (if so, how long)? @ -[No] Were there social determinants of health that impacted care today? How? (Homelessness, low income, unemployed, alcoholism, drug addiction, transportation, low edu. Level, literacy, decrease access to med. care, custodial, re hab)? @ -[No] Was there de-escalation of care discussed even if they declined (Discuss DNR or withdrawal of care, Hospice)? DNR status @ -[No] What co-morbidities impacted this encounter? (DM, HTN, Smoking, COPD, CAD, Cancer, CVA, ARF, Chemo, Hep., AIDS, mental health diagnosis, sleep apnea, morbid obesity)? @ -[None] Was patient admitted / discharged? Hospital course, mention meds given and route , prescriptions, significant lab abnormalities, going to OR and other pertinent info. @ -[hospital course] Undiagnosed new problem with uncertain prognosis? @ -[No] Drug Therapy requiring intensive monitoring for toxicity (Heparin, Nitro, Insulin, Cardizem)? @ -[No] Were any procedures done? @ -[No] Diagnosis/symptom? @ -[default] Acute, or Chronic, or Acute on Chronic? @ -Acute Uncomplicated (without systemic symptoms) or Complicated (systemic symptoms)? @ -Complicated Side effects of treatment? @ -[No] Exacerbation, Progression, or Severe Exacerbation? @ -[No] Poses a threat to life or bodily function? How? (Chest pain, [place], [place], pneumonia, PE, COPD, DKA, ARF, appy, cholecystitis, CVA, Diverticulitis, Homicidal, Suicidal, threat to staff... and all critical care pts) @ -[No] - Lab Data Result diagrams: 07/10/24 13:41 07/10/24 13:41 Lab Results 07/10/24 07/10/24 07/10/24 Range/Units 13:41 13:41 13:41 WBC 5.7 (3.8-10.6) k/uL RBC 4.06 (3.80-5.40) m/uL Hgb 12.9 (11.4-16.0) gm/dL Hct 39.3 (34.0-46.0) % MCV 96.6 (80.0-100.0) fL MCH 31.7 (25.0-35.0) pg MCHC 32.8 (31.0-37.0) g/dL RDW 13.3 (11.5-15.5) % Plt Count 308 (150-450) k/uL MPV 7.4 Neutrophils % 80 % Lymphocytes % 12 % Monocytes % 5 % Eosinophils % 1 % Basophils % 0 % Neutrophils # 4.5 (1.3-7.7) k/uL Lymphocytes # 0.7 L (1.0-4.8) k/uL Monocytes # 0.3 (0-1.0) k/uL Eosinophils # 0.1 (0-0.7) k/uL Basophils # 0.0 (0-0.2) k/uL PT 11.1 (10.0-12.5) sec INR 1.0 (<1.2) APTT 21.1 L (22.0-30.0) sec Sodium 137 (137-145) mmol/L Potassium 3.5 (3.5-5.1) mmol/L Chloride 109 H (98-107) mmol/L Carbon Dioxide 22 (22-30) mmol/L Anion Gap 6 mmol/L BUN 14 (7-17) mg/dL Creatinine 0.53 (0.52-1.04) mg/dL Est GFR (CKD-EPI)AfAm >90 (>60 ml/min/1.73 sqM) Est GFR (CKD-EPI)NonAf >90 (>60 ml/min/1.73 sqM) Glucose 98 (74-99) mg/dL Calcium 8.1 L (8.4-10.2) mg/dL Magnesium 1.6 (1.6-2.3) mg/dL Total Bilirubin 0.4 (0.2-1.3) mg/dL AST 23 (14-36) U/L ALT 21 (4-34) U/L Alkaline Phosphatase 49 (38-126) U/L Troponin I (0.000-0.034) ng/mL Total Protein 5.6 L (6.3-8.2) g/dL Albumin 3.4 L (3.5-5.0) g/dL Urine Color Urine Appearance (Clear) Urine pH (5.0-8.0) Ur Specific [place] (1.001-1.035) Urine Protein (Negative) Urine Glucose (UA) (Negative) Urine Ketones (Negative) Urine Blood (Negative) Urine Nitrite (Negative) Urine Bilirubin (Negative) Urine Urobilinogen (<2.0) mg/dL Ur Leukocyte Esterase (Negative) 07/10/24 07/10/24 Range/Units 13:41 14:59 WBC (3.8-10.6) k/uL RBC (3.80-5.40) m/uL Hgb (11.4-16.0) gm/dL Hct (34.0-46.0) % MCV (80.0-100.0) fL MCH (25.0-35.0) pg MCHC (31.0-37.0) g/dL RDW (11.5-15.5) % Plt Count (150-450) k/uL MPV Neutrophils % % Lymphocytes % % Monocytes % % Eosinophils % % Basophils % % Neutrophils # (1.3-7.7) k/uL Lymphocytes # (1.0-4.8) k/uL Monocytes # (0-1.0) k/uL Eosinophils # (0-0.7) k/uL Basophils # (0-0.2) k/uL PT (10.0-12.5) sec INR (<1.2) APTT (22.0-30.0) sec Sodium (137-145) mmol/L Potassium (3.5-5.1) mmol/L Chloride (98-107) mmol/L Carbon Dioxide (22-30) mmol/L Anion Gap mmol/L BUN (7-17) mg/dL Creatinine (0.52-1.04) mg/dL Est GFR (CKD-EPI)AfAm (>60 ml/min/1.73 sqM) Est GFR (CKD-EPI)NonAf (>60 ml/min/1.73 sqM) Glucose (74-99) mg/dL Calcium (8.4-10.2) mg/dL Magnesium (1.6-2.3) mg/dL Total Bilirubin (0.2-1.3) mg/dL AST (14-36) U/L ALT (4-34) U/L Alkaline Phosphatase (38-126) U/L Troponin I <0.012 (0.000-0.034) ng/mL Total Protein (6.3-8.2) g/dL Albumin (3.5-5.0) g/dL Urine Color Colorless Urine Appearance Clear (Clear) Urine pH 7.5 (5.0-8.0) Ur Specific [place] 1.007 (1.001-1.035) Urine Protein Negative (Negative) Urine Glucose (UA) Negative (Negative) Urine Ketones Trace H (Negative) Urine Blood Negative (Negative) Urine Nitrite Negative (Negative) Urine Bilirubin Negative (Negative) Urine Urobilinogen <2.0 (<2.0) mg/dL Ur Leukocyte Esterase Negative (Negative) Disposition Clinical Impression: Dizziness Disposition: HOME SELF-CARE Condition: Good Instructions (If sedation given, give patient instructions): Dizziness (ED) Additional Instructions: Although up with PCP/oncology regarding symptoms and possible medication change. Is patient prescribed a controlled substance at d/c from ED?: No Referrals: Mana Doherty NPC [REFERRING] - 1-2 days Time of Disposition: 16:57
[2024-07-10 14:01] LABS: Basophils % (A) 0 %; Eosinophils # (A) 0.1 k/uL (0-0.7); Eosinophils % (A) 1 %; HCT 39.3 % (34.0-46.0); HGB 12.9 gm/dL (11.4-16.0); Lymphocytes # (A) 0.7 k/uL (1.0-4.8); Lymphocytes % (A) 12 %; MCH 31.7 pg (25.0-35.0); MCHC 32.8 g/dL (31.0-37.0); MCV 96.6 fL (80.0-100.0); Mean Platelet Volume 7.4; Monocytes # (A) 0.3 k/uL (0-1.0); Monocytes % (A) 5 %; Neutrophils # (A) 4.5 k/uL (1.3-7.7); Neutrophils % (A) 80 %; Platelet Count 308 k/uL (150-450); RBC 4.06 m/uL (3.80-5.40); RDW 13.3 % (11.5-15.5); WBC 5.7 k/uL (3.8-10.6)
[2024-07-10] MEDS: SODIUM CHLORIDE 0.9% 1,000 ML IV STA (14:01)
[2024-07-10 14:15] LABS: ALT 21 U/L (4-34); AST 23 U/L (14-36); African American GFR (CKD) >90 (>60 ml/min/1.73 sqM); Albumin 3.4 g/dL (3.5-5.0); Alkaline Phosphatase 49 U/L (38-126); Anion Gap 6 mmol/L; Blood Urea Nitrogen 14 mg/dL (7-17); Calcium 8.1 mg/dL (8.4-10.2); Carbon Dioxide 22 mmol/L (22-30); Chloride 109 mmol/L (98-107); Glucose 98 mg/dL (74-99); Magnesium 1.6 mg/dL (1.6-2.3); Non-African American GFR(CKD) >90 (>60 ml/min/1.73 sqM); Potassium 3.5 mmol/L (3.5-5.1); Sodium 137 mmol/L (137-145); Total Bilirubin 0.4 mg/dL (0.2-1.3); Total Protein 5.6 g/dL (6.3-8.2)
[2024-07-10 14:17] LABS: Prothrombin Time 11.1 sec (10.0-12.5)
[2024-07-10 14:20] LABS: Partial Thromboplastin Time 21.1 sec (22.0-30.0)
--- NOTE | 2024-07-10 14:37 | XR ---
EXAMINATION TYPE: XR chest 2V DATE OF EXAM: 07/10/2024 2:24 PM COMPARISON: None CLINICAL INDICATION: Female, 69 years old with history of Dizziness, SOB; PHH TECHNIQUE: XR chest 2V Frontal and lateral views of the chest. FINDINGS: Lungs/Pleura: There is no evidence of pleural effusion, focal consolidation, or pneumothorax. Pulmonary vascularity: Unremarkable. Heart/mediastinum: Cardiomediastinal silhouette is unremarkable. Musculoskeletal: No acute osseous pathology. IMPRESSION: No acute cardiopulmonary disease/process. [facility], , 07/10/2024 2:35 PM
[2024-07-10 15:09] LABS: Appearance,Urine Clear (Clear); Bilirubin,Urine Negative (Negative); Blood,Urine Negative (Negative); Color,Urine Colorless; Glucose,Urine (UA) Negative (Negative); Ketones,Urine Trace (Negative); Leukocyte Esterase,Urine Negative (Negative); Nitrite,Urine Negative (Negative); PH, Urine 7.5 (5.0-8.0); Protein,Urine Negative (Negative); Specific Gravity,Urine 1.007 (1.001-1.035); Urobilinogen,Urine <2.0 mg/dL (<2.0)
[2024-07-10 15:40] VITALS: RESP 16
--- NOTE | 2024-07-10 16:18 | CT ---
EXAMINATION TYPE: CT angio head neck DATE OF EXAM: 07/10/2024 3:12 PM COMPARISON: CT head same day. CLINICAL INDICATION: Female, 69 years old with history of Dizziness, extremity weakness; PHH, Dizzine ss and extremity weakness, lymphnodes removed from left breast x 3 weeks ago. TECHNIQUE: Axially acquired helical CT angiogram of the head and neck was obtained with contrast. Axi al images are supplemented with 3D reconstructions and MIP images which were post-processed at an in dependent workstation. NASCET criteria used. Contrast used:65 mL of Isovue 370 without and with IV Contrast, Oral contrast used: None. CT DLP: 1308.2 mGycm, Automated exposure control for dose reduction was used. FINDINGS: CTA HEAD: No evidence of acute intracranial hemorrhage, mass effect, or midline shift. The ventricles, sulci, a nd cisterns are unremarkable. Bilaterally aphakia. Vertebral arteries: The vertebral arteries are patent. Vertebral artery dominance: Codominant Basilar artery: The basilar artery is intact. The basilar artery bifurcation is normal. Internal Carotid arteries: The cervical, petrous, cavernous and supraclinoid segments are normal. BH[place]AR: Patent with no evidence of aneurysm. ACOM: Present without evidence of aneurysm. MCA: Patent with no evidence of aneurysm. DIE FITTER: Patent with no evidence of aneurysm. PCOM: Hypoplastic bilaterally. Dural sinuses: Patent. CTA NECK: Right Carotid System: The common carotid artery and external carotid artery are patent. The carotid bifurcation demonstrate s no evidence of hemodynamically significant stenosis. The remaining portions of the internal carotid artery demonstrate normal size without significant narrowing. Left Carotid System: The common carotid artery and external carotid artery are patent. The carotid bifurcation demonstrate s no evidence of hemodynamically significant stenosis. The remaining portions of the internal carotid artery demonstrate normal size without significant narrowing. Vertebral arteries are patent without evidence hemodynamically significant stenosis. There is a three-vessel aortic arch. The origins of the great vessels are patent. No evidence of hemo dynamically significant stenosis. IMPRESSION: 1. No evidence of dissection of the cervical internal carotid arteries or vertebral arteries. 2. No any evidence of significant stenosis at the carotid bifurcations. 3. No evidence of intracranial high-grade stenosis or intracranial aneurysm. [facility], , 07/10/2024 4:16 PM
--- NOTE | 2024-07-10 16:30 | CT ---
EXAMINATION TYPE: CT brain wo con DATE OF EXAM: 07/10/2024 4:19 PM COMPARISON: Same day CTA. CLINICAL INDICATION: Female, 69 years old with history of Dizziness, extremity weakness, Dizziness an d extremity weakness, lymphnodes removed from left breast x 3 weeks ago. TECHNIQUE: Brain: Axial CT images of the brain were obtained with coronal and sagittal reformats created and rev iewed. Contrast used: None. Oral contrast used: None. CT DLP: 1308.2 mGycm, Automated exposure control for dose reduction was used. FINDINGS: Brain: Extra-axial spaces: No abnormal extra-axial fluid collections. Ventricular system: Within normal limits Cerebral parenchyma: No acute intraparenchymal hemorrhage or mass effect. The murphy-white junction is well differentiated. Cerebellum: Unremarkable. Mass effect: No evidence of midline shift. Intracranial vasculature: unremarkable Soft tissues: Normal. Calvarium/osseous structures: No depressed skull fracture. Paranasal sinuses and mastoid air cells: Mild scattered paranasal sinus disease. Visualized orbits: Orbital contents are intact. IMPRESSION: No acute intracranial process. [facility], , 07/10/2024 4:28 PM
[2024-07-10 17:16] VITALS: BP 119/74; PULSE 68; TEMP 98.1
== END 2024-07-10 17:16 | disposition home or self-care (01) ==
LOC: EC 13:00
DX: R42 Dizziness and giddiness (principal); E78.5 Hyperlipidemia, unspecified
CPT/HCPCS: 36415; 93005; 80053; 83735; 84484; 85025; 85610; 85730; 81003; 71046; 70496; 70450; 70498; 99285; 96360; Q9967

== ENCOUNTER → 2024-11-24 | Outpatient (CLI) | payer MEDICARE ==
[2024-11-24 09:55] VITALS: BP 130/85; PULSE 66; RESP 18; TEMP 97.3
--- NOTE | 2024-11-24 10:00 | P.PN ---
Subjective Progress Note Date: 11/24/24 Principal diagnosis: left breast stage I IDC 202406/16/24 Principal diagnosis: left breast invasive ductal cancer 11-24-24 History of Present Illness: left breast invasive ductal cancer Requesting physician: Mana Doherty History of present illness: Echo is a 69 year old female seen in consultation for Dale Doherty regarding a left breast biopsy-proven invasive ductal carcinoma. She had a bilateral screening mammogram performed on 04-07-2024. Following this it was recommended that she undergo diagnostic mammogram of both breast. Diagnostic mammogram of both breasts were performed on 04-19-2024 which led to further workup of the left breast. She did undergo further workup of the left breast on 04-19-2024 which revealed a 6 mm lesion in the left breast at the 12 o'clock position. She underwent ultrasound-guided core biopsy of this area on 05-05-2024 and this revealed an invasive grade 1 ductal carcinoma. This was ER/WI positive and HER2 negative. she did not feel anything in her breast. Never had surgery on her breast in the past. She is not complaining of any nipple discharge or skin changes. She has not had any recent trauma or infe ction in the breast. Patient's case presented at tumor board and 05-31-2024. She underwent a left breast lumpectomy sentinel node biopsy, Oncotype, radiation therapy and endocrine therapy recommended. She is having additional radiographs of the right breast performed on 06-10-2024. These were done and no lesions of concern noted. Lumpectomy performed on 07-01-2024. This was a 6 mm lesion all margins negative, and sentinel node biopsy negative. She is on exemestane and tolerating it without difficulty. She declined any radiation therapy and did not have any chemotherapy. An Oncotype was not performed. She is not complaining of any new lumps masses or nodules of concern in either breast. Medical oncology note Dr. Limon 07-04-2024 reviewed, patient decided to admit radiation therapy, they discussed performing Oncotype which she decided not to proceed with, she did agree to an aromatase inhibitor and genetic testing bone density was recommended prior to her next visit with him. Caffeine: 2 12 0z muggs of coffee nicotine: none chocolate: weekly hormones: none BCP: used for 10 years Family History: maternal grandmother: ? colon maternal cousin: cancer ? type brother: tumor on shoulder spread brother: amylodiosis cardiac Hormonal History: menarche: 10 , breast fed: yes, age at first : 23 menopause: 43 Surgical History: bunyon right foot left leg fatty nodules tonsil wisdom teeth left breast lumpectomy and SNB Medical History: hypothyroid high cholesterol Social History: nicotine: none alcohol: occasional drugs: none Review of Systems - Constitutional Denies fever, Denies weight loss - EENT EENT Comment(s): cataract surgery bilateral Ears: bilateral: tinnitus, deny: decreased hearing Ears, nose, mouth and throat: Denies dysphagia - Breasts bilateral: as per HPI - Cardiovascular Denies chest pain, Denies shortness of breath - Respiratory Denies cough, - Gastrointestinal Reports as per HPI - Genitourinary Genitourinary: Denies dysuria, Denies hematuria Menstruation: Reports postmenopausal - Musculoskeletal Musculoskeleta Comment(s): back pain arthritis, bone spurs in neck - Integumentary Denies rash, Denies unusual bruising - Neurological Denies headaches, Denies syncope - Psychiatric Reports as per HPI - Endocrine Reports as per HPI, Reports fatigue - Hematologic/Lymphatic Denies easy bleeding, Denies easy bruising - Allergic/Immunologic Reports as per HPI, Reports seasonal allergies Past Medical History Past Medical History: Hyperlipidemia, Thyroid Disorder Additional Past Medical History / Comment(s): Arthritis, History of Any Multi-Drug Resistant Organisms: None Reported Past Surgical History: Tonsillectomy Additional Past Surgical History / Comment(s): Colonoscopy, R foot surgery with hardware, cataracts Additional Past Anesthesia/Blood Transfusion Reaction / Comm: States with last colonoscopy her heart rate decreased and states they gave her medicine to increase her heart rate. Past Psychological History: No Psychological Hx Reported Smoking Status: Never smoker Past Alcohol Use History: Occasional Past Drug Use History: None Reported - Past Family History Mother Family Medical History: No Reported History Father Family Medical History: Myocardial Infarction ([place]) Medications and Allergies Home Medications Medication Instructions Recorded Confirmed Type Levothyroxine Sodium [Synthroid] 75 mcg PO DAILY 10/07/13 05/16/24 History Simvastatin [Zocor] 20 mg PO HS 10/07/13 05/16/24 History Calcium Carbonate [Calcium] 600 mg PO DAILY 02/02/24 05/16/24 History Cholecalciferol [Vitamin D3 (10 10 mcg PO DAILY 02/02/24 05/16/24 History Mcg = 400 Iu)] Ibuprofen [Motrin] 400 mg PO Q8HR PRN 02/02/24 05/16/24 History Multivitamins, Thera [Multivitamin 1 tab PO DAILY 02/02/24 05/16/24 History (formulary)] Allergies Allergy/AdvReac Type Severity Reaction Status Date / Time No Known Allergies Allergy Verified 05/16/24 11:12 Objective - Constitutional General appearance: Present: cooperative - EENT Eyes: Present: EOMI ENT: Present: hearing grossly normal - Neck Neck: Present: normal ROM - Respiratory Respiratory: bilateral: CTA - Cardiovascular Rhythm: regular Heart sounds: normal: S1, S2 - Integumentary Integumentary: Present: normal turgor - Musculoskeletal Musculoskeletal: Present: gait normal - Psychiatric Psychiatric: Present: A&O x's 3, appropriate affect, intact judgment & insight - Additional findings Additional findings: Breast Exam: BRA: 36B Inspection: Right breast grade ptosis, left breast grade 1/2 ptosis Palpation: Right breast: Multi positional exam fibrocystic changes, no dominant masses or nodules of concern Right axilla: No adenopathy of concern Left breast: Multi positional exam no dominant masses or nodules of concern, biopsy site clean and dry no evidence of infection, grade 2 ptosis Left axilla: No adenopathy of concern Assessment and Plan Assessment: Impression: Patient's status post left breast lumpectomy/sentinel node biopsy for stage I T1 N0 M0 invasive ductal carcinoma Patient presently on exemestane following with Dr. Limon Plan: Bilateral mammogram March 2025 with appointment at that time Patient to follow-up sooner any questions or concerns Continue to follow with medical oncology Continue exemestane CC: Dale Dean
== END ==
LOC: WWCWWP 09:03
PROVIDERS: ATTEND Surgery
DX: C50.912 Malignant neoplasm of unspecified site of left female breast (principal); Z98.890 Other specified postprocedural states

== ENCOUNTER → 2024-11-24 | Outpatient (CLI) | payer MEDICARE ==
--- NOTE | 2024-11-24 10:32 | BD ---
EXAMINATION TYPE: Axial Bone Density DATE OF EXAM: 11/24/2024 CLINICAL HISTORY: 69 years old Female. ICD-10 CODE: M81.0 AGE-RELATED OSTEOPOROSIS W/O CURRENT PATHO LOGY , Additional History: Height: 65 Weight: 158 FRAX RISK QUESTIONS: Family History (Parent hip fracture): yes mother, pelvis Glucocorticoids (More than 3mos): yes (Ex: prednisone, prednisolone, methylprednisolone, dexamethasone, and hydrocortisone). 3. Menopause before 45: no at 45 RISK FACTORS HISTORY OF: hx of left breast cancer, jun 2024 MEDICATIONS: cholesterol, vit d , calcium, anti-hormone for breast cancer Thyroid Medications: yes fir 15 yrs, synthroid EXAM MEASUREMENTS: Bone mineral densitometry was performed using the ip.access System. Bone mineral density as measured about the Lumbar spine is: ----- L1-L4(G/cm2): 1.131 T Score Values are as follows: ----- L1: -2.4 ----- L2: 0.0 ----- L3: 0.6 ----- L4: -0.2 ----- L1-L4: -0.4 Z Score Values are as follows: ----- L1: -1.0 ----- L2: 1.5 ----- L3: 2.0 ----- L4: 1.3 ----- L1-L4: 1.1 Bone mineral density has: Increased 7.6% since study of: 04.03.2022 Bone mineral density about the R hip (g/cm2): 0.759 Bone mineral density about the L hip (g/cm2): 0.801 T Score values are as follows: -----R Neck: -2.1 -----L Neck: -2.1 -----R Total: -2.0 -----L Total: -1.6 Z Score values are as follows: -----R Neck: -0.5 -----L Neck: -0.5 -----R Total: -0.6 -----L Total: -0.3 Bone mineral density has: Decreased -2.0% since study of: 04.03.2022 FRAX%s: The graph provided illustrates a 31.4% chance for a major osteoporotic fx and a 12.5% chance for the hips probability for fx in 10 years time. IMPRESSION: Osteopenia (T Score between -2.5 and -1). There is slightly increased risk of fracture and the patient may be considered for treatment. Re-Screen 2-5 years. NOTE: T-SCORE=SD OF THE YOUNG ADULT MEAN. [facility], , 11/24/2024 10:29 AM
== END | disposition home or self-care (01) ==
LOC: RADBDWWP 09:05
PROVIDERS: ATTEND Internal Medicine Hematology & Oncology
DX: M81.0 Age-related osteoporosis without current pathological fracture (principal); M85.89 Other specified disorders of bone density and structure, multiple sites
CPT/HCPCS: 77080